=== PATIENT | female | born 1990 | race Caucasian/White ===

== ENCOUNTER 2018-08-01 18:38 | Emergency (ER) | payer MEDICAID, OTHER ==
[2018-08-01] MEDS: LORAZEPAM 1 MG TAB PO (19:13)
== END 2018-08-01 20:12 | disposition home or self-care (01) ==
LOC: FTE 18:38
DX: F41.9 Anxiety disorder, unspecified (principal)
CPT/HCPCS: 71045; 81025; 93005; 99284-25